=== PATIENT | female | born 1990 | race Hispanic/Latino ===

== ENCOUNTER 2020-05-13 09:30 | Day surgery (SDC) | payer BC ==
[2020-05-12 11:44] VITALS: BMI 35.0
[2020-05-13] MEDS ORDERED: cefOXitin Sodium/Dextrose 2 GM/50 ML BAG ONE (09:50)
[2020-05-13] MEDS ORDERED: Ondansetron PF 4 MG/2 ML Vial ONE (10:25)
[2020-05-13] MEDS ORDERED: Lidocaine 1% PF 5 ML VIAL ONE (10:25)
[2020-05-13] MEDS ORDERED: PROPOFOL 200 MG/20 ML VIAL ONE (10:25)
[2020-05-13] MEDS ORDERED: Dexamethasone 20 MG/5 ML VIAL ONE (10:25)
[2020-05-13] MEDS ORDERED: Metoclopramide HCl 10 MG/2 ML VIAL ONE (10:25)
[2020-05-13] MEDS ORDERED: Ketorolac Tromethamine 30 MG/ML VIAL ONE (10:25)
[2020-05-13] MEDS ORDERED: Rocuronium Bromide 10 MG/ML (10ML VIAL) ONE (10:25)
[2020-05-13] MEDS ORDERED: Fentanyl 100 MCG/2 ML VIAL ONE ×2 (11:22)
[2020-05-13] MEDS ORDERED: Famotidine/PF 20 mg/2ml Vial ONE (11:22)
[2020-05-13] MEDS ORDERED: Midazolam HCl 2 mg/2 ml Vial ONE ×2 (11:38→14:10)
[2020-05-13] MEDS ORDERED: SUGAMMADEX SODIUM 200 MG/2 ML VIAL ONE (11:57)
[2020-05-13] MEDS ORDERED: Promethazine HCl 25 MG/ML VIAL ONE (13:04)
[2020-05-13] MEDS ORDERED: Meperidine HCl/PF 25 MG/ML VIAL ONE (13:20)
--- NOTE | 2020-05-13 14:09 | OP ---
DATE OF PROCEDURE: 05/13/2020 PREOPERATIVE DIAGNOSIS: Symptomatic cholelithiasis. PROCEDURE PERFORMED: Laparoscopic cholecystectomy. INDICATIONS: This is a 29-year-old female, who has been having severe right upper quadrant pain radiating to the back associated with nausea. Ultrasound showed cholelithiasis. FINDINGS: Very distended gallbladder, thickened gallbladder wall, purulent appearing fluid within the gallbladder, multiple large stones. DESCRIPTION OF PROCEDURE: After informed consent was obtained, the patient was taken to the operating room and given general endotracheal anesthesia, placed in supine position. Abdomen was prepped and draped in usual fashion. Local anesthesia was infiltrated subcutaneously and deep, and a subumbilical incision was performed. Subcu divided sharply. The fascia was grasped and 2 stay sutures of 0 Vicryl placed through each side of midline. Midline incised. Digital palpation revealed no local adhesions. A blunt 12-mm trocar inserted. Pneumoperitoneum was created to a pressure of 15 mmHg. A 0-degree laparoscope inserted under direct vision, three 5-mm ports were placed subcostally. The gallbladder was very distended. The aspirating needle was inserted 80 mL of thick free fluid removed from the gallbladder. This was sent for culture. The gallbladder was then grafts advanced superiorly. The peritoneum lysed distally to allow exposure of the cystic duct artery in critical view. The duct and artery were triply ligated with hemoclips and divided. The gallbladder removed from its fossa utilizing electrocautery. It was placed in an Endosac, removed from the abdomen in an Endosac. Hemostasis was achieved utilizing electrocautery as well as the risk of powder in the abdomen irrigated. Irrigation fluid removed. Trocars and retractors removed. The fascia was closed with interrupted 0 Vicryl suture. Skin was closed with interrupted 4-0 Rapide. Dermabond applied. The patient tolerated the procedure well, transferred to Recovery in good condition. Sponge and needle count verified correct x2. Job ID: [id number]
== END 2020-05-13 16:10 | disposition home or self-care (01) ==
LOC: SDC 09:30
PROVIDERS: ATTEND Surgery
PROC: 0FT44ZZ Resection of Gallbladder, Percutaneous Endoscopic Approach (ICD-10-PCS; principal; 2020-05-13)
DX: K80.10 Calculus of gallbladder with chronic cholecystitis without obstruction (principal); Z79.899 Other long term (current) drug therapy; Z88.8 Allergy status to other drugs, medicaments and biological substances
CPT/HCPCS: 87070; 87205; 88304; J0694; J1100; J1885; J2175; J2250; J2405; J2550; J2704; J2765; J3010; S0028